=== PATIENT | male | born 1950 | race Caucasian/White ===

== ENCOUNTER → 2019-10-16 14:43 | Outpatient (BNVA) | payer MEDICARE, OTHER, SELFPAY | PROVIDERS: Family Provider Internal Medicine; PCP Internal Medicine; Visit Provider Anesthesiology | DX: M54.5 Low back pain (principal); M79.604 Pain in right leg; M79.605 Pain in left leg; Z79.891 Long term (current) use of opiate analgesic | CPT/HCPCS: 99214 ==

== ENCOUNTER → 2019-10-28 11:08 | Outpatient (BNVA) | payer OTHER, SELFPAY | PROVIDERS: Family Provider Internal Medicine; PCP Internal Medicine; Referring Provider Licensed Practical Nurse; Visit Provider Psychiatry & Neurology Neurology | DX: M79.604 Pain in right leg (principal); M79.605 Pain in left leg; M54.5 Low back pain; Z87.891 Personal history of nicotine dependence | CPT/HCPCS: 95886; 95909 ==

== ENCOUNTER 2019-11-25 06:00 | Outpatient (RCR) | payer MEDICARE, OTHER, SELFPAY | END 2019-12-10 23:59 | disposition home or self-care (01) | LOC: MPT 06:00 | PROVIDERS: Family Provider Internal Medicine; PCP Internal Medicine; Referring Provider Licensed Practical Nurse; Visit Provider Licensed Practical Nurse | DX: M51.16 Intervertebral disc disorders with radiculopathy, lumbar region (principal) | CPT/HCPCS: 97110; 97161 ==

== ENCOUNTER → 2019-12-12 14:09 | Outpatient (BNVA) | payer OTHER, SELFPAY | PROVIDERS: Family Provider Internal Medicine; PCP Internal Medicine; Visit Provider Nurse Practitioner | DX: Z76.89 Persons encountering health services in other specified circumstances (principal) ==

== ENCOUNTER 2020-03-02 10:23 | Outpatient (CLI) | payer MEDICARE, OTHER, SELFPAY ==
--- NOTE | 2020-03-02 10:36 | MR_ITS ---
WS: [id number] MRI LUMBAR SPINE WITH CONTRAST TECHNIQUE: Sagittal T1, T2 and STIR imaging. Axial T1 and T2 imaging. Post gadolinium imaging was obt ained. CLINICAL INFORMATION: Surveillance MRI COMPARISON: MRI 08/30/2019 and 05/28/2019 MRI May 01, 2019 FINDINGS: Mild lumbar curve. No acute compression. No high-grade central canal stenosis. Again seen is the smal l enhancing nodule at the tip of the conus measuring 4 mm maximum dimension unchanged from previous. This most likely represents a small schwannoma. L1-L2: Normal. L2-L3: No significant disc bulging. Spinal canal and foramen are patent. Mild facet arthropathy. L3-L4: Tiny left foraminal protrusion with mild left and no significant right foraminal narrowing. Sp inal canal is patent. Mild facet arthropathy. L4-L5: Mild annular bulging. Mild left and no significant right foraminal narrowing. Spinal canal is patent. Mild facet arthropathy. L5-S1: Mild annular bulging. Mild facet arthropathy. Spinal canal and foramen are patent. 2.3 cm left renal cyst. MR/MR lumbar spine wo/w con [id number] IMPRESSION: 1. Stable small enhancing nodule tip of the conus likely due to schwannoma. Th is is unchanged measuring 4 mm. 2. Mild lumbar curve. No acute compression. No high-grade central canal stenos is. 3. Small left foraminal protrusion L3-4 with mild left foraminal narrowing. Sl ight contact of the exiting left L3 nerve root. 4. Mild annular bulging L4-5 with mild left L4-5 foraminal narrowing. 5. Moderate facet arthropathy worse L4-5.
[2020-03-02 12:31] LABS: Blood Urea Nitrogen 14 mg/dL (8-23); Glomerular Filtration Rate 74.1 mL/min (90-130)
== END 2020-03-02 10:24 | disposition home or self-care (01) ==
LOC: RADWPI 10:31
PROVIDERS: Visit Provider Licensed Practical Nurse
DX: D33.4 Benign neoplasm of spinal cord (principal); M51.26 Other intervertebral disc displacement, lumbar region; M47.816 Spondylosis without myelopathy or radiculopathy, lumbar region
CPT/HCPCS: 72158; 82565; 84520; A9579

== ENCOUNTER → 2020-03-18 09:52 | Outpatient (BNVA) | payer MEDICARE, OTHER, SELFPAY | PROVIDERS: Family Provider Internal Medicine; PCP Internal Medicine; Visit Provider Nurse Practitioner | DX: M54.5 Low back pain (principal); Z79.891 Long term (current) use of opiate analgesic | CPT/HCPCS: 99213 ==

== ENCOUNTER → 2020-05-21 09:45 | Outpatient (BNVA) | payer MEDICARE, OTHER, SELFPAY | PROVIDERS: Family Provider Internal Medicine; PCP Family Medicine; Visit Provider Nurse Practitioner | DX: M51.16 Intervertebral disc disorders with radiculopathy, lumbar region (principal); Z79.891 Long term (current) use of opiate analgesic | CPT/HCPCS: 99213 ==

== ENCOUNTER → 2020-07-17 08:42 | Outpatient (BNVA) | payer OTHER, SELFPAY | PROVIDERS: Family Provider Internal Medicine; PCP Family Medicine; Visit Provider Anesthesiology | DX: M51.16 Intervertebral disc disorders with radiculopathy, lumbar region (principal); D33.4 Benign neoplasm of spinal cord; Z79.891 Long term (current) use of opiate analgesic | CPT/HCPCS: 99212; 99214 ==

== ENCOUNTER 2020-08-24 09:50 | Outpatient (CLI) | payer OTHER, SELFPAY | END 2020-08-24 09:51 | disposition home or self-care (01) | LOC: WOUND 09:52 | PROVIDERS: Family Provider Internal Medicine; PCP Family Medicine; Visit Provider Nurse Practitioner Family | DX: L03.119 Cellulitis of unspecified part of limb (principal); R60.9 Edema, unspecified | CPT/HCPCS: 99212; A6545 ==

== ENCOUNTER 2020-08-27 20:00 | Outpatient (CLI) | payer OTHER, SELFPAY | END 2020-08-27 20:01 | disposition home or self-care (01) | LOC: SLEEP 08-28 09:32 | PROVIDERS: PCP Family Medicine; Visit Provider Family Medicine | DX: G47.33 Obstructive sleep apnea (adult) (pediatric) (principal) | CPT/HCPCS: 95811 ==

== ENCOUNTER 2020-08-28 07:32 | Outpatient (CLI) | payer OTHER, SELFPAY ==
--- NOTE | 2020-08-28 07:41 | USCV_ITS ---
Paul Boone Age: 69 Gender: M : 1950 Exam Date: 08/28/2020 08:15 Ordering Phys: Carolyn Klein Technologist: uRpal Ward [place] [facility] [place]: HISTORY: Non Healing Wound Lt post lower leg PROCEDURES: The venous duplex Doppler examination of both lower extremities was performed in the standard fashion. The following venous structures were evaluated: common femoral vein, profunda vein, proximal portion of the greater saphenous vein, superficial femoral vein, and the popliteal vein FINDINGS: No DVT seen in any vessel examined No superficial thrombus noted in any vessel examined No reflux noted in any vessel examined The veins were found to be easily compressible with spontaneous blood flow. Non pulsatile flow pattern. CONCLUSIONS No evidence of DVT in the above-mentioned identifiable veins. No notable reflux was seen at this time. Dr Dai Abebe MD [facility] (Electronically Signed) Final Date: 30 August 2020 14:37 S
== END 2020-08-28 07:33 | disposition home or self-care (01) ==
LOC: US 07:32
PROVIDERS: PCP Family Medicine; Visit Provider Nurse Practitioner Family
DX: M79.605 Pain in left leg (principal); L53.9 Erythematous condition, unspecified
CPT/HCPCS: 93970

== ENCOUNTER 2020-09-01 07:52 | Outpatient (CLI) | payer OTHER, SELFPAY ==
--- NOTE | 2020-09-01 08:00 | USCV_ITS ---
Boone Miller Age: 69 Gender: M : 1950 Exam Date: 09/01/2020 07:46 Ordering Phys: Carolyn Klein Technologist: Exam Location: [facility] [place] Indication: non healing ulcer RIGHT LEFT Brachial 184.00 mmHg Brachial 182.00 mmHg Pressure (mmHg) Waveform Pressure (mmHg) Waveform 172.00 Above Knee 179.00 198.00 Below Knee 202.00 209.00 PRODUCT DEVELOPMENT INTERN 191.00 203.00 DPA 180.00 1.14 Ankle/Brachial Index 1.04 144.00 Pre-Exercise Toe Pressure 149.00 0.78 Pre-Exercise Toe/Brachial Index 0.81 FINDINGS Normal resting ABIs bilaterally Normal resting TBIs bilaterally CONCLUSIONS No significant arterial obstruction, based on the above findings Elevated segmental pressures bilaterally Dr Dai Abebe MD [facility] (Electronically Signed) Final Date: 01 September 2020 20:26 S
== END 2020-09-01 07:53 | disposition home or self-care (01) ==
LOC: US 07:57
PROVIDERS: PCP Family Medicine; Visit Provider Nurse Practitioner Family
DX: M79.604 Pain in right leg (principal); M79.605 Pain in left leg; L53.9 Erythematous condition, unspecified; L97.929 Non-pressure chronic ulcer of unspecified part of left lower leg with unspecified severity; L97.919 Non-pressure chronic ulcer of unspecified part of right lower leg with unspecified severity
CPT/HCPCS: 93923

== ENCOUNTER → 2020-09-16 08:01 | Outpatient (BNVA) | payer OTHER, SELFPAY | PROVIDERS: PCP Family Medicine; Visit Provider Anesthesiology | DX: M51.16 Intervertebral disc disorders with radiculopathy, lumbar region (principal); Z79.891 Long term (current) use of opiate analgesic | CPT/HCPCS: 99214 ==

== ENCOUNTER → 2020-09-17 09:12 | Outpatient (BNVA) | payer OTHER, SELFPAY | PROVIDERS: PCP Family Medicine; Visit Provider Anesthesiology | DX: G89.29 Other chronic pain (principal); M51.16 Intervertebral disc disorders with radiculopathy, lumbar region; E11.9 Type 2 diabetes mellitus without complications; Z79.891 Long term (current) use of opiate analgesic | CPT/HCPCS: 62323; J1040; J3490 ==

== ENCOUNTER → 2020-11-17 07:54 | Outpatient (BNVA) | payer OTHER, SELFPAY | PROVIDERS: PCP Family Medicine; Visit Provider Anesthesiology | DX: M51.16 Intervertebral disc disorders with radiculopathy, lumbar region (principal); D33.4 Benign neoplasm of spinal cord; Z79.891 Long term (current) use of opiate analgesic | CPT/HCPCS: 99214 ==

== ENCOUNTER → 2021-01-19 12:52 | Outpatient (BNVA) | payer OTHER, SELFPAY | PROVIDERS: PCP Family Medicine; Visit Provider Anesthesiology | DX: G89.29 Other chronic pain (principal); M51.16 Intervertebral disc disorders with radiculopathy, lumbar region; Z79.891 Long term (current) use of opiate analgesic | CPT/HCPCS: 99214 ==

== ENCOUNTER → 2021-03-16 10:16 | Outpatient (BNVA) | payer OTHER, SELFPAY | PROVIDERS: PCP Family Medicine; Visit Provider Anesthesiology | DX: G89.29 Other chronic pain (principal); M51.16 Intervertebral disc disorders with radiculopathy, lumbar region; Z79.891 Long term (current) use of opiate analgesic; Z87.891 Personal history of nicotine dependence | CPT/HCPCS: 99213; 99214 ==

== ENCOUNTER → 2021-05-18 10:07 | Outpatient (BNVA) | payer OTHER, SELFPAY | PROVIDERS: PCP Family Medicine; Visit Provider Anesthesiology | DX: M51.16 Intervertebral disc disorders with radiculopathy, lumbar region (principal); D33.4 Benign neoplasm of spinal cord; Z79.891 Long term (current) use of opiate analgesic; Z87.891 Personal history of nicotine dependence | CPT/HCPCS: 99213 ==

== ENCOUNTER → 2021-07-20 12:42 | Outpatient (BNVA) | payer OTHER, SELFPAY | PROVIDERS: PCP Family Medicine; Visit Provider Anesthesiology | DX: M51.16 Intervertebral disc disorders with radiculopathy, lumbar region (principal); Z79.891 Long term (current) use of opiate analgesic | CPT/HCPCS: 99213 ==

== ENCOUNTER → 2021-09-17 11:28 | Outpatient (BNVA) | payer OTHER, SELFPAY | PROVIDERS: PCP Family Medicine; Visit Provider Anesthesiology | DX: M51.16 Intervertebral disc disorders with radiculopathy, lumbar region (principal); Z79.891 Long term (current) use of opiate analgesic; Z87.891 Personal history of nicotine dependence | CPT/HCPCS: 99213 ==

== ENCOUNTER → 2021-11-15 14:15 | Outpatient (BNVA) | payer OTHER, SELFPAY | PROVIDERS: PCP Family Medicine; Visit Provider Internal Medicine | DX: I25.10 Atherosclerotic heart disease of native coronary artery without angina pectoris (principal); I10 Essential (primary) hypertension; E11.9 Type 2 diabetes mellitus without complications; E78.5 Hyperlipidemia, unspecified; R07.9 Chest pain, unspecified; R06.02 Shortness of breath; Z87.891 Personal history of nicotine dependence | CPT/HCPCS: 99214 ==

== ENCOUNTER 2022-01-24 11:03 | Outpatient (CLI) | payer OTHER, SELFPAY ==
--- NOTE | 2022-01-24 11:15 | USCV_ITS ---
Boone Miller Age: 71 Gender: M : 1950 Exam Date: 01/24/2022 11:20 Ordering Phys: Alan Timmons M.D ([email or web address]) Technologist: Exam Location: [facility] [place] Indication: murmur BP: 168 / 65 HR: 72 Rhythm: Other Technical Quality: Adequate MEASUREMENTS (Male / Female) Normal Values 2D ECHO LV Diastolic Diameter PLAX 5.2 cm 4.2 - 5.9 / 3.9 - 5.3 cm LV Systolic Diameter PLAX 2.8 cm IVS Diastolic Thickness 1.3 cm 0.6 - 1.0 / 0.6 - 0.9 cm IVS Systolic Thickness 1.6 cm LVPW Diastolic Thickness 1.3 cm 0.6 - 1.0 / 0.6 - 0.9 cm LVPW Systolic Thickness 1.8 cm LVOT Diameter 2.0 cm LV Ejection Fraction 2D Teich 77.4 % LV Ejection Fraction MOD 2C 69.9 % LV Ejection Fraction 2C AL 69.6 % LA Diameter 3.9 cm Aorta at Sinotubular Diameter 2.8 cm IVC Diameter 2.0 cm M-MODE RV Diastolic Diameter MM 1.6 cm Aortic Annulus Diameter 3.7 cm LA Ao Ratio MM 1.2 MV E Point Septal Separation 0.6 cm DOPPLER AV Peak Velocity 145.0 cm/s LVOT Peak Velocity 95.0 cm/s AV Area Cont Eq vti 1.9 cm squared AV Area Cont Eq pk 2.1 cm squared MV Area PHT 5.0 cm squared Mitral E to A Ratio 1.1 MV E' Velocity 49.5 cm/s Mitral E to MV E' Ratio 10.3 Mitral E to LV E' Lateral Ratio 10.0 Mitral E to LV E' Septal Ratio 10.6 TR Peak Velocity 148.7 cm/s TR Peak Gradient 8.8 mmHg TV Peak E Velocity 87.0 cm/s Right Atrial Pressure 3.0 mmHg Pulmonary Artery Systolic Pressu 11.8 mmHg PV Peak Velocity 110.0 cm/s FINDINGS Left Ventricle Normal left ventricular size. LV systolic function is normal with EF of 55-60%. No regional wall motion abnormalities. Diastolic function is normal Right Ventricle The right ventricle is normal in size and function. Right Atrium The right atrium is normal in size. Left Atrium The left atrium is dilated. Mitral Valve Structurally normal mitral valve without significant stenosis or prolapse. There is trace mitral regurgitation. Aortic Valve Structurally normal aortic valve without significant sclerosis or stenosis. There is no aortic regurgitation. Tricuspid Valve Structurally normal tricuspid valve without significant stenosis. Trace tricuspid regurgitation. Pulmonary artery systolic pressure is normal. Pulmonic Valve Structurally normal pulmonic valve without significant stenosis. There is no pulmonic regurgitation. Pericardium Normal pericardium without effusion. Aorta Normal ascending aorta dimension. IVC CONCLUSIONS LV systolic function is normal with EF of 55-60% Diastolic function is normal Left atrium is dilated Trace mitral regurgitation Trace tricuspid regurgitation No comparison studies are available Alan Timmons MD (Electronically Signed) Final Date: 29 Jan 2022 12:45 S
== END 2022-01-24 11:04 | disposition home or self-care (01) ==
LOC: RAD 11:06
PROVIDERS: PCP Family Medicine; Visit Provider Internal Medicine
DX: R07.9 Chest pain, unspecified (principal); R06.02 Shortness of breath; I51.7 Cardiomegaly
CPT/HCPCS: 93306

== ENCOUNTER → 2022-05-30 13:27 | Outpatient (BNVA) | payer OTHER, SELFPAY | PROVIDERS: PCP Family Medicine; Visit Provider Internal Medicine | DX: I10 Essential (primary) hypertension (principal); E11.9 Type 2 diabetes mellitus without complications; Z79.84 Long term (current) use of oral hypoglycemic drugs; E78.5 Hyperlipidemia, unspecified; I25.10 Atherosclerotic heart disease of native coronary artery without angina pectoris; R07.9 Chest pain, unspecified; Z87.891 Personal history of nicotine dependence | CPT/HCPCS: 99214 ==

== ENCOUNTER 2022-08-16 12:12 | Outpatient (CLI) | payer OTHER, SELFPAY ==
--- NOTE | 2022-08-16 12:25 | USCV_ITS ---
Boone Miller Age: 71 Gender: M : 1950 Exam Date: 08/16/2022 12:32 Ordering Phys: Lucero Banerjee MD Technologist: CT Exam Location: [facility] [place]_ Indication: screening aaa HISTORY: Diameter (cm) AP x Transverse x Length Velocity (cm/s) Waveform Prox Aorta: 1.95 x 1.99 x 63.40 Mid Aorta: 2.10 x 2.14 x 92.40 Distal Aorta: 2.07 x 2.07 x Right Iliac Prox: 1.57 x 1.34 x 237.60 Left Iliac Prox: 1.53 x 1.42 x 107.40 Stent Prox Landing x x Aneurysmal Sac Max x x Lt Lat Sac Dim Rt Lat Sac Dim Stent Dist Landing x x Right Iliac Stent x x Left Iliac Stent x x Right Renal Art Left Renal Art FINDINGS: Large pt, doppler of ao and iliacs were very difficult to obtain and may not be accurate. There is no evidence of aaa. CONCLUSIONS 1. Abdominal aorta was found to have normal dimensions, suggesting no abdominal aortic aneurysm. 2. The proximal common iliac arteries also appear to have normal dimensions. 3. Elevated velocity in the left common iliac artery may suggest stenosis of greater than 50%. Because of the patient's obesity, the study quality is compromised. Consider CTA to better evaluate the arteries, specifically the left iliac artery Dr Dai Abebe MD [facility] (Electronically Signed) Final Date: 19 August 2022 17:35 S
== END 2022-08-16 12:13 | disposition home or self-care (01) ==
LOC: RAD 12:14
PROVIDERS: PCP Family Medicine; Visit Provider Family Medicine
DX: Z13.6 Encounter for screening for cardiovascular disorders (principal)
CPT/HCPCS: 76706

== ENCOUNTER → 2022-10-25 14:24 | Outpatient (BNVA) | payer OTHER, SELFPAY | PROVIDERS: PCP Family Medicine; Visit Provider Orthopaedic Surgery | DX: M47.814 Spondylosis without myelopathy or radiculopathy, thoracic region (principal); M47.816 Spondylosis without myelopathy or radiculopathy, lumbar region | CPT/HCPCS: 72070; 72120; 99204 ==

== ENCOUNTER 2022-10-26 07:26 | Outpatient (CLI) | payer OTHER, SELFPAY ==
--- NOTE | 2022-10-26 07:41 | ECG_ITS ---
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 Interpretive Statements NAME OF STUDY: LEXISCAN SESTAMIBI STRESS TEST INDICATION: [Chest Pain, ] Procedure: At the baseline, the blood pressure was 159/60 mmHg with a heart rate of 65 bpm. The electrocardiogram showed normal sinus rhythm, normal axis with normal ST and T's. The Lexiscan was infused over a period of 20 seconds. A total of 0.4 mg of Lexiscan was infused. The stress phase was continued for a total of 5 minutes. Heart rate was at the end of stress phase was 85 bpm and a blood pressure of 150/44 mmHg. The EKG at the peak infusion revealed normal sinus rhythm with no significant ST-T wave changes. Sestamibi was injected 20 seconds after the Lexiscan infusion. Blood pressure at the end of recovery phase was 162/44 mmHg with a heart rate of 77 bpm. Conclusion: 1. Normal EKG response to Lexiscan infusion 2. No Lexiscan induced chest pain or cardiac arrhythmia. 3. Normal blood pressure and heart rate response. 4. Sestamibi/sestamibi perfusion scan pending; see separate report. Electronically Signed On 11-05-2022 23:07:01 PHARMACIST AIDE by Alan Timmons M.D. [id number]
--- NOTE | 2022-10-26 07:42 | NMCV_ITS ---
NM samuel perf SPECT r/s* [id number] Boone Miller Age: 71 Gender: M : 1950 Exam Date: 10/26/2022 08:39 Ordering Phys: Alan Timmons M.D ([email or web address]) Technologist: ANKITA Holley Exam Location: [facility] Indications: CHEST PAIN STRESS TEST [facility] IMAGE PROTOCOL Rest/Stress 1 Lexiscan Day Radiopharmaceutical Dose (mCi) Administration Site Administered by Rest: Tc-99m 10.7 IV ANKITA Gurrola Sestamibi Stress:Tc-99m 32.6 IV ANKITA Gurrola Sestamibi Rest: 26-Oct-2022 60 Discovery 630 Stress: 26-Oct-2022 30 Discovery 630 0.4mg Lexiscan. Supine position only as patient was unable to lay prone. SPECT RESULTS Technical Quality: Excellent Raw Data Analysis: Normal Image Corrections: No attenuation or motion correction applied Summed Stress Score: 3 Summed Rest Score: 2 Summed Difference Score: 2 PERFUSION FINDINGS There is a small in size, reversible perfusion defect noted in the mid anterior wall and inferolateral abraham. Prone imaging not performed, attenuation artifact can not be ruled out FUNCTIONAL RESULTS (calculated via Gated SPECT) Stress Image LV EF (%): 72 Stress EDV (mL):114 TID: 1.06 Stress ESV (mL):32 FUNCTIONAL FINDINGS: There is normal left ventricular systolic function. IMPRESSIONS 1. Small areas of reversible perfusion defect noted in the LAD and Left circumflex artery territories. This is consistent with small areas of ischmia in these territories. Attenuation artifact can not be ruled out. Clinical correlation is required. 2. LV systolic function is normal Alan Timmons MD (Electronically Signed) Final Date: 27 October 2022 08:49 S
[2022-10-26] MEDS: regadenoson 0.4 Mg/5 ml Syringe IVP (09:09)
[2022-10-26 09:28] VITALS: BP 141/49; PULSE 79
== END 2022-10-26 07:27 | disposition home or self-care (01) ==
LOC: RAD 07:32 → CDL 07:40
PROVIDERS: PCP Family Medicine; Visit Provider Internal Medicine
DX: R07.9 Chest pain, unspecified (principal); I25.9 Chronic ischemic heart disease, unspecified
CPT/HCPCS: 36415; 78452; 93017; 96374; A9500; J2785

== ENCOUNTER 2022-11-11 11:23 | Outpatient (CLI) | payer OTHER, SELFPAY | END 2022-11-11 11:24 | disposition home or self-care (01) | LOC: RT 11-16 11:25 | PROVIDERS: PCP Family Medicine; Visit Provider Orthopaedic Surgery | DX: Z13.6 Encounter for screening for cardiovascular disorders (principal); I48.91 Unspecified atrial fibrillation | CPT/HCPCS: 93005 ==

== ENCOUNTER 2022-11-16 09:39 | Outpatient (CLI) | payer OTHER, SELFPAY ==
--- NOTE | 2022-11-16 10:02 | CT_ITS ---
WS: [id number] CTA ABDOMINAL AORTA WITH RUNOFF TECHNIQUE: Contrast enhanced CTA of the abdominal aorta with bilateral lower extremity runoff. Multip lanar reformatted images were obtained. MIP reformats were also reviewed. CLINICAL INFORMATION: ?INCIDENTAL LEFT COMMON STENOSIS NOTED ON AAA SCREENING COMPARISON: Ultrasound August 16, 2022 DLP: 790.[address] scans at [facility] use at least one of these dose optimization techniques: automated e xposure control; mA and/or kV adjustment per patient size (includes targeted exams where dose is matc hed to clinical indication); or iterative reconstruction. FINDINGS: Normal caliber abdominal aorta. No evidence of abdominal aortic aneurysm. Moderate calcifie d atheromatous disease abdominal aorta. Celiac and SMA are patent. Renal arteries are patent. Patent accessory RIGHT renal artery. BENJY is patent. Lung bases are well aerated. Hepatomegaly with diffuse f atty infiltration liver. Small esophageal hiatal hernia. Normal spleen. Fatty atrophy of the pancreas . Gallbladder appears normal. Normal portal vein and splenic vein. Adrenal glands are normal. Normal renal parenchymal enhancement. No hydronephrosis. LEFT renal cyst measuring 2.1 cm. Sigmoid diverticulosis. No evidence of acute diverticulitis. RIGHT: Densely calcified RIGHT common iliac artery with approximately 50% stenosis at the origin. Seg mental moderate stenosis RIGHT common iliac artery which remains patent. Densely calcified internal i liac artery with poor flow. External iliac artery is patent. Common femoral artery is patent. Superfi cial femoral and deep femoral arteries are patent. Mild to moderate segmental stenosis in the superfi cial femoral artery with somewhat poor opacification. This appears patent to the adductor hiatus. Pop liteal artery is also somewhat poorly opacified but appears patent. Densely calcified and atretic jewel f arteries. LEFT: LEFT common iliac artery is patent at the origin. Moderate calcified atheromatous plaque LEFT c ommon iliac artery with mild to moderate segmental stenosis which remains patent. No high-grade steno sis. Densely calcified internal iliac artery. External iliac artery is patent. Common femoral and sup erficial femoral arteries are patent. Deep femoral artery is patent. Superficial femoral artery demon strates mild to moderate segmental stenosis and is patent to the adductor hiatus. Popliteal artery is patent to the trifurcation. Densely calcified and atretic calf arteries. This is similar in appearan ce to the RIGHT side. CT/CT angio abd aorta runof [id number] IMPRESSION: 1. RIGHT: Densely calcified RIGHT common iliac artery with approximately 50% s tenosis at the origin. Segmental moderate stenosis RIGHT common iliac artery wh ich remains patent. External iliac artery is patent. Common femoral artery is p atent. Superficial femoral and deep femoral arteries are patent. Mild to modera te segmental stenosis in the superficial femoral artery with somewhat poor opac ification. This appears patent to the adductor hiatus. Popliteal artery is also somewhat poorly opacified but appears patent. Densely calcified and atretic ca lf arteries. 2. LEFT: LEFT common iliac artery is patent at the origin. Moderate calcified atheromatous plaque LEFT common iliac artery with mild to moderate segmental st enosis which remains patent. No high-grade stenosis. External iliac artery is p atent. Common femoral and superficial femoral arteries are patent. Superficial femoral artery demonstrates mild to moderate segmental stenosis and is patent to the adductor hiatus. Popliteal artery is patent to the trifurcation. Densely calcified and atretic calf arteries. This is similar in appearance to the RIGH T side. 3. Normal caliber abdominal aorta with moderate atheromatous disease. No aneur ysm. 4. Celiac and SMA are patent. 5. Renal arteries are patent. 6. Otherwise mild vascular findings described above.
[2022-11-16] MEDS: iohexol 350 mg/mL 500 mL Btl (per mL) IV (10:29)
== END 2022-11-16 09:40 | disposition home or self-care (01) ==
LOC: RAD 09:42
PROVIDERS: PCP Family Medicine; Visit Provider Family Medicine
DX: Z01.89 Encounter for other specified special examinations (principal); K57.30 Diverticulosis of large intestine without perforation or abscess without bleeding; I70.8 Atherosclerosis of other arteries
CPT/HCPCS: 75635; Q9967

== ENCOUNTER → 2022-11-17 15:40 | Outpatient (BNVA) | payer OTHER, SELFPAY | PROVIDERS: PCP Family Medicine; Visit Provider Nurse Practitioner Family | DX: I48.91 Unspecified atrial fibrillation (principal); I25.10 Atherosclerotic heart disease of native coronary artery without angina pectoris; Z87.891 Personal history of nicotine dependence; Z79.01 Long term (current) use of anticoagulants | CPT/HCPCS: 36415; 80048; 83880; 93005; 99214 ==

== ENCOUNTER 2022-11-18 | Day surgery (SDC) | payer OTHER, SELFPAY ==
--- NOTE | 2022-11-11 09:02 | ECG_ITS ---
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 Measurements Intervals [place] Rate: 86 P: 0 ND: 0 QRS: 76 QRSD: 93 T: 60 QT: 379 QTc: 455 Interpretive Statements ATRIAL FIBRILLATION with occasional sinus beats LOW QRS VOLTAGE IN PRECORDIAL LEADS [QRS DEFLECTION < 1.0 mV IN CHEST LEADS] POSSIBLE ANTERIOR MYOCARDIAL INFARCTION , PROBABLY OLD [30 ms Q WAVE IN V3/V4, OR R < 0.2 mV IN V4] ABNORMAL RHYTHM ECG No previous ECG available for comparison Electronically Signed On 11-11-2022 21:54:27 DOOR ASSEMBLER by Dai Abebe M.D. [id number]
[2022-11-11 09:17] LABS: Basophils # 0.1 10^3/uL (0.0-0.1); Basophils % 0.6 %; Eosinophils # 0.2 10^3/uL (0.0-0.8); Eosinophils % 2.3 %; Hematocrit 35.6 % (42.0-52.0); Hemoglobin 11.3 g/dL (11.7-16.6); Lymphocytes # 1.8 10^3/uL (0.8-4.8); Lymphocytes % 20.8 %; Mean Corpuscular HGB Conc 31.7 g/dL (30.0-36.0); Mean Corpuscular Hemoglobin 28.3 pg (28.0-34.0); Mean Platelet Volume 9.5 fL (7.4-10.4); Monocytes # 0.8 10^3/uL (0.2-0.9); Monocytes % 9.6 %; Neutrophils # 5.68 10^3/uL (1.8-7.7); Neutrophils % 66.5 %; Nucleated Red Blood Cells % 0 %; Platelet Count 273 10^3/cmm (130-400); Red Cell Distribution Width 15.5 % (12.1-15.1); White Blood Count 8.6 10^3/uL (4.0-10.0)
[2022-11-11 09:21] VITALS: BMI 36.9
[2022-11-11 09:33] LABS: Anion Gap 16.1 (5-19); Blood Urea Nitrogen 16 mg/dL (8-23); Calcium 9.6 mg/dL (8.5-10.5); Carbon Dioxide 26 mmol/L (22-29); Chloride 101 mmol/L (98-107); Glucose 161 mg/dL (65-115); Osmolality Calculated 293 mOsm/kg (285-295); Potassium 4.1 mmol/L (3.5-5.1); Sodium 139 mmol/L (136-145)
--- NOTE | 2022-11-11 13:43 | P.ANESASSM_ITS ---
Pre-Anesthetic Assessment Height/Weight: Height 1.7 m Weight 107.048 kg Operation Date: 11/18/22 07:00 Proposed Procedures p Spinal Cord Stimulator Placement and Generator/71569, 13757 M54.50(Not Applicable) - Liang Mario, DO Familial anesthetic complications: none Was Beta Isabel taken within 24 hours: N/A Was Clonidine taken within 24 hours: N/A Social No alcohol and No tobacco Exam alert, oriented x 3, clear to auscultation bilaterally and regular rate & rhythm Airway Submandibular: within normal limits Cervical ROM: within normal limits Mallampati: Class II Dentition: false CV/HEM Atrial Fibrillation, Coronary Artery Disease and Myocardial Infarction CONCLUSIONS ?LV systolic function is normal with EF of 55-60% ?Diastolic function is normal ?Left atrium is dilated ?Trace mitral regurgitation ?Trace tricuspid regurgitation ?No comparison studies are available ?Alan Timmons MD ?(Electronically Signed) ?Final Date:? ? ? 29 Jan 2022 12:45 Conclusion: 1. ? Normal EKG response to Lexiscan infusion 2.? No Lexiscan induced chest pain or cardiac arrhythmia. 3.? Normal blood pressure and heart rate response. 4.? Sestamibi/sestamibi perfusion scan pending; see separate report. Electronically Signed On 11-05-2022 23:07:01 SALES TEAM RECRUITER by Alan Timmons M.D. [id number] GI Gastroesophageal Reflux Disease Metabolic Diabetes Mellitus, Hyperlipidemia and Morbid Obesity [facility] [place] Lower Back Pain and Osteoarthritis/DJD Neuropsych chronic pain/opioid Anesthetic Plan ASA status: 3 Anesthesia: General Medications/Allergies Home Medications Medication Instructions Recorded Confirmed Last Taken Type alogliptin 25 mg tablet 25 mg PO DAILY 10/16/19 11/11/22 11/11/22 History amlodipine 10 mg tablet 10 mg PO DAILY 10/16/19 11/11/22 11/11/22 History atorvastatin 80 mg tablet 80 mg PO DAILY 10/16/19 11/11/22 11/11/22 History clopidogrel 75 mg tablet (Plavix) 75 mg PO DAILY 10/16/19 11/11/22 11/11/22 History diclofenac sodium 1 % gel topical 4 gm topical BID PRN Pain 10/16/19 11/11/22 11/11/22 History kit finasteride 5 mg tablet 5 mg PO DAILY 10/16/19 11/11/22 11/11/22 History metformin 1,000 mg tablet 1,000 mg PO BID 10/16/19 11/11/22 11/11/22 History pregabalin 150 mg capsule 150 mg PO BID 10/16/19 11/11/22 11/11/22 History tamsulosin 0.4 mg capsule 0.4 mg PO DAILY 10/16/19 11/11/22 11/11/22 History pantoprazole 20 mg tablet,delayed 20 mg PO DAILY 03/18/20 11/11/22 11/11/22 History release cholecalciferol (vitamin D3) 50 50 mcg PO DAILY 07/20/21 11/11/22 11/11/22 History mcg (2,000 unit) tablet (Vitamin D3) hydrocodone 5 mg-acetaminophen 325 1 tab PO QID PRN pain 30 days #120 09/17/21 11/11/22 11/11/22 Rx mg tablet tabs furosemide 40 mg tablet 40 mg PO BID 11/15/21 11/11/22 11/11/22 History potassium chloride 20 mEq 20 meq PO DAILY 11/15/21 11/11/22 11/11/22 History tablet,extended release sacubitril 97 mg-valsartan 103 mg 0.5 tab PO BID 11/15/21 11/11/22 11/11/22 History tablet hydralazine 100 mg tablet 100 mg PO TID #270 tabs 05/30/22 11/11/22 11/11/22 Rx aspirin 81 mg tablet,delayed 81 mg PO DAILY 11/11/22 11/11/22 11/10/22 History release Allergies Allergy/AdvReac Type Severity Reaction Status Date / Time isosorbide AdvReac CONFUSION/N Verified 10/25/22 14:20 [facility] Anesthesia Medical History Atherosclerotic heart disease Back pain, lumbosacral Diabetes mellitus Encounter for long-term use of opiate analgesic History of left heart catheterization Hyperlipidemia 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 Schwannoma of spinal cord Thoracic back pain Surgical History H/O rhinoplasty History of shoulder surgery Family History Mother Chronic kidney disease (CKD) Diabetes Father Dementia Social History Smoking and tobacco status: former smoker Second hand smoke exposure: No Alcohol intake: never Household members: spouse Marital status: Current occupational status: retired and disabled Data Anesthesia 11/11/22 09:10 11/11/22 09:10 Short CBC 11/11/22 Range/Units 09:10 WBC 8.6 (4.0-10.0) 10^3/uL Hgb 11.3 L (11.7-16.6) g/dL Hct 35.6 L (42.0-52.0) % MCV 89.0 (80-94) fl Plt Count 273 (130-400) 10^3/cmm Neut % (Auto) 66.5 % Neut # (Auto) 5.68 (1.8-7.7) 10^3/uL BMP 11/11/22 09:10 Sodium 139 Potassium 4.1 Chloride 101 Carbon Dioxide 26 BUN 16 Creatinine 0.8 Glucose 161 H Calcium 9.6 Cardiac Studies: Echocardiogram 01/24/22 Sestamibi Stress Test (Cardiology) 10/26
== END 2022-11-18 23:00 | disposition home or self-care (01) ==
LOC: OR 01-25 13:51
PROVIDERS: Anesthesiology; PCP Family Medicine; Visit Provider Orthopaedic Surgery
DX: I48.91 Unspecified atrial fibrillation (principal); R94.31 Abnormal electrocardiogram [ECG] [EKG]; Z01.818 Encounter for other preprocedural examination; M54.50 Low back pain, unspecified; I25.10 Atherosclerotic heart disease of native coronary artery without angina pectoris; I25.2 Old myocardial infarction; K21.9 Gastro-esophageal reflux disease without esophagitis; E11.9 Type 2 diabetes mellitus without complications; E78.5 Hyperlipidemia, unspecified; E66.01 Morbid (severe) obesity due to excess calories; Z68.37 Body mass index [BMI] 37.0-37.9, adult; G89.29 Other chronic pain; Z79.891 Long term (current) use of opiate analgesic; Z79.02 Long term (current) use of antithrombotics/antiplatelets; Z79.84 Long term (current) use of oral hypoglycemic drugs; Z79.82 Long term (current) use of aspirin; Z87.891 Personal history of nicotine dependence
CPT/HCPCS: 80048; 85025

== ENCOUNTER → 2022-12-02 11:16 | Outpatient (BNVA) | payer OTHER, SELFPAY | PROVIDERS: PCP Family Medicine; Visit Provider Nurse Practitioner Family | DX: I48.91 Unspecified atrial fibrillation (principal); I10 Essential (primary) hypertension; Z87.891 Personal history of nicotine dependence | CPT/HCPCS: 36415; 80048; 83880; 99214 ==

== ENCOUNTER → 2023-01-23 15:23 | Outpatient (BNVA) | payer OTHER, SELFPAY | PROVIDERS: PCP Family Medicine; Visit Provider Internal Medicine | DX: I25.10 Atherosclerotic heart disease of native coronary artery without angina pectoris (principal); I10 Essential (primary) hypertension; E11.9 Type 2 diabetes mellitus without complications; E78.5 Hyperlipidemia, unspecified; R07.9 Chest pain, unspecified; Z87.891 Personal history of nicotine dependence | CPT/HCPCS: 99214 ==

== ENCOUNTER → 2023-04-03 10:24 | Outpatient (BNVA) | payer OTHER, SELFPAY | PROVIDERS: PCP Family Medicine; Visit Provider Nurse Practitioner Family | DX: R07.9 Chest pain, unspecified (principal); I48.91 Unspecified atrial fibrillation | CPT/HCPCS: 93005 ==

== ENCOUNTER → 2023-06-15 12:21 | Outpatient (BNVA) | payer OTHER, SELFPAY | PROVIDERS: PCP Family Medicine; Visit Provider Internal Medicine Cardiovascular Disease | DX: I48.91 Unspecified atrial fibrillation (principal); I10 Essential (primary) hypertension; E11.9 Type 2 diabetes mellitus without complications; E78.5 Hyperlipidemia, unspecified; I25.10 Atherosclerotic heart disease of native coronary artery without angina pectoris; Z87.891 Personal history of nicotine dependence; Z79.84 Long term (current) use of oral hypoglycemic drugs | CPT/HCPCS: 99214 ==

== ENCOUNTER → 2023-08-14 16:58 | Outpatient (BNVA) | payer OTHER, SELFPAY | PROVIDERS: PCP Family Medicine; Visit Provider Internal Medicine | DX: I10 Essential (primary) hypertension (principal); I48.91 Unspecified atrial fibrillation | CPT/HCPCS: 36415; 80048; 83880; 99214 ==

== ENCOUNTER → 2023-10-31 08:34 | Outpatient (BNVA) | payer OTHER, SELFPAY | PROVIDERS: PCP Family Medicine; Visit Provider Orthopaedic Surgery | DX: M54.50 Low back pain, unspecified; Z01.812 Encounter for preprocedural laboratory examination | CPT/HCPCS: 36415; 80053; 81001; 85025; 99214 ==

== ENCOUNTER 2023-11-17 06:48 | Day surgery (SDC) | payer OTHER, SELFPAY ==
[2023-11-17] VITALS (13 sets, daily range): BP systolic 141–180; BP diastolic 58–82; PULSE 55–84; RESP 12–20; TEMP 36.2–37.1; O2SAT 91–98; BMI 35.9
--- NOTE | 2023-11-17 | XR_ITS ---
WS: [id number] INTRAOPERATIVE TECHNIQUE: 2 Spot fluoroscopic images for intraoperative purposes. FLUOROSCOPY TIME: 20.2 seconds CLINICAL INFORMATION: LOUIE PICS COMPARISON: None. FINDINGS: Mild thoracic kyphosis. Dorsal epidural spinal stimulator. Hypertrophic changes with ankylosis thorac ic spine. Aortic calcification. Spinal stimulator projected over T7 vertebral body IMPRESSION: Images obtained for intraoperative purposes.
[2023-11-17 07:45] LABS: Glucose Point of Care 151 mg/dL (70-110)
[2023-11-17] MEDS: sodium chloride 0.9% 1,000 ML 30 ML IV (08:00)
--- NOTE | 2023-11-17 08:35 | P.ANESASSM_ITS ---
Pre-Anesthetic Assessment Height/Weight: Height 1.73 m Weight 107.048 kg Temp Pulse Resp BP Pulse Ox O2 Del Method 98.7 F 84 20 H 180/82 95 Room Air 11/17/23 07:29 11/17/23 07:29 11/17/23 07:29 11/17/23 07:29 11/17/23 07:29 11/17/23 07:29 Preop Diagnosis: Lumbar stenosis with neurogenic claudication Operation Date: 11/17/23 08:50 Proposed Procedures p Spinal Cord Stimulator paddle and generator placement(Not Applicable) - Liang Mario, DO Familial anesthetic complications: none Was Beta Isabel taken within 24 hours: N/A Was Clonidine taken within 24 hours: N/A Last intake: Intake Last Liquid Date 11/16/23 Last Liquid Time 20:00 Last Solid Date 11/16/23 Last Solid Time 19:30 Social No alcohol and No tobacco Exam alert, oriented x 3, clear to auscultation bilaterally and regular rate & rhythm Airway Submandibular: within normal limits Cervical ROM: within normal limits Mallampati: Class II Dentition: false CV/HEM Atrial Fibrillation, Coronary Artery Disease and Myocardial Infarction CAD - stents placed ~ 2009 and 2011 CONCLUSIONS ?LV systolic function is normal with EF of 55-60% ?Diastolic function is normal ?Left atrium is dilated ?Trace mitral regurgitation ?Trace tricuspid regurgitation ?No comparison studies are available ?Alan Timmons MD ?(Electronically Signed) ?Final Date:? ? ? 29 Jan 2022 12:45 Conclusion: 1. ? Normal EKG response to Lexiscan infusion 2.? No Lexiscan induced chest pain or cardiac arrhythmia. 3.? Normal blood pressure and heart rate response. 4.? Sestamibi/sestamibi perfusion scan pending; see separate report. Electronically Signed On 11-05-2022 23:07:01 MANAGER DELIVERY by Alan Timmons M.D. [email or web address] GI Gastroesophageal Reflux Disease Metabolic Diabetes Mellitus, Hyperlipidemia and Morbid Obesity Musc/skel Lower Back Pain and Osteoarthritis/DJD Neuropsych chronic pain/opioid Anesthetic Plan ASA status: 3 Anesthesia: General Medications/Allergies Home Medications Medication Instructions Recorded Confirmed Last Taken Type atorvastatin 80 mg tablet 80 mg PO BEDTIME 10/16/19 11/17/23 11/16/23 History finasteride 5 mg tablet 5 mg PO BEDTIME 10/16/19 11/17/23 11/16/23 History metformin 1,000 mg tablet 1,000 mg PO BID 10/16/19 11/17/23 11/16/23 History pregabalin 150 mg capsule 150 mg PO BID 10/16/19 11/17/23 11/16/23 History tamsulosin 0.4 mg capsule 0.4 mg PO DAILY 10/16/19 11/17/23 11/16/23 History cholecalciferol (vitamin D3) 50 50 mcg PO DAILY 07/20/21 11/17/23 11/16/23 Hi story mcg (2,000 unit) tablet (Vitamin D3) potassium chloride 20 mEq 20 meq PO BEDTIME 11/15/21 11/17/23 11/16/23 History tablet,extended release hydralazine 100 mg tablet 100 mg PO TID #270 tabs 05/30/22 11/17/23 11/16/23 Rx furosemide 40 mg tablet 40 mg PO DAILY 11/17/22 11/17/23 11/16/23 History rivaroxaban 20 mg tablet 20 mg PO DAILY #90 tabs 08/01/23 11/16/23 11/15/23 Rx ascorbic acid (vitamin C) 500 mg 1 g PO DAILY 08/14/23 11/17/23 11/16/23 History tablet magnesium oxide 400 mg (241.3 mg 800 mg PO BEDTIME 08/14/23 11/17/23 11/16/23 History magnesium) tablet diltiazem HCl 120 mg capsule,24 120 mg PO BID #180 caps 11/07/23 11/17/23 11/16/23 Rx hr,extended release famotidine 20 mg tablet 20 mg PO BID 11/08/23 11/17/23 11/16/23 History multivitamin 1 tab PO DAILY 11/08/23 11/17/23 11/16/23 History sacubitril 97 mg-valsartan 103 mg 1 tab PO BID 11/16/23 11/16/23 11/15/23 History tablet (Entresto) Allergies Allergy/AdvReac Type Severity Reaction Status Date / Time isosorbide AdvReac CONFUSION/N Verified 11/08/23 10:12 [facility] Anesthesia Medical History Hypertension Diabetes mellitus Hyperlipidemia Atherosclerotic heart disease Thoracic back pain 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 Encounter for long-term use of opiate analgesic Back pain, lumbosacral History of left heart catheterization Surgical History History of shoulder surgery H/O rhinoplasty Family History Mother Chronic kidney disease (CKD) Diabetes Father Dementia Social History Smoking and tobacco/nicotine status: former use of tobacco/nicotine Second hand smoke exposure: No Alcohol intake: never Substance/Drug Use: never Household members: spouse Marital status: Current occupational status: retired and disabled Data Anesthesia Cardiac Studies: Echocardiogram 01/24/22 Sestamibi Stress Test (Cardiology) 10/26 Cardiac Event Monitor 01/23/23
--- NOTE | 2023-11-17 08:56 | W.PM.OPSUD ---
Surgery/Procedure H&P Update DATE OF PROCEDURE: November 17, 2023 DATE H&P PERFORMED: 11/08/23 H&P UPDATE INFORMATION: I have reviewed H&P completed within last 30 days, I have examined patient prior to procedure and No changes to prior documentation PREOP DIAGNOSIS: Lumbar stenosis with neurogenic claudication PLANNED PROCEDURE: Operation Date: 11/17/23 08:50 Proposed Procedures p Spinal Cord Stimulator paddle and generator placement(Not Applicable) - Liang Mario DO
[2023-11-17] MEDS: ceFAZolin 2,000 MG in sodium chloride 0.9% (plus) 50 ML 100 MG IV (09:13)
[2023-11-17] MEDS: lidocaine-epi 1% 20 mL INJ 10 ML INJECTION (09:55)
--- NOTE | 2023-11-17 10:49 | P.OP_ITS ---
Operative Report Date of procedure: November 17, 2023 Pre-op diagnosis: Lumbar stenosis with neurogenic claudication Post-op diagnosis: same Procedure done: 1. Placement of paddle neurostimulator 2. Placement of battery for neurostimulator Surgeon: Liang Mario DO Estimated blood loss (mL): 10 Procedure: 1. Placement of paddle neurostimulator 2. Placement of battery for neurostimulator Patient brought to the procedure after going anesthesia was placed in the prone position. All his impingement well-padded patient's prepped draped normal fashion. Tenderness was brought to the placement of the paddle neurotransmitter. Skin incision made over the T9-10 level. Subperiosteal diss ection was made down to the transverse processes of T9 and T10. Retractors placed. Rongeur was used by 3 interspinous ligament as well as part of the spinous process of T9. Laminectomy was performed using high-speed bur along with curved curettes and Kerrisons. The ligamentum flavum was then taken down. The dura was exposed. The hockey-stick white paddle was then used to confirm there is a pathway for the neurotransmitter. The paddle neurotransmitter was then slid up to the mid body of T7. This is confirmed on AP lateral fluoroscopy. Once this was completed. Attention was then brought to making the battery pouch. This is made over the left flank. The pocket was then made with using the Bovie and blunt dissection. The tunneler was then passed from the battery pouch to the location of the wires. The wires were sutured to the spinous process of T10. The wires were then passed through the tunneler. Into the battery pouch. They were placed in all 4 ports and trialed and found to be in good position. Battery was then placed in the pouch of the left flank. And wounds were closed in layered fashion with 0 Vicryl 2-0 Vicryl and Monocryl suture. Sterile dressings were applied patient is transferred to the PACU in stable condition
--- NOTE | 2023-11-17 11:09 | PC.NURSE ---
Dolores, [employer], currently performing stimulator checks while patient is in PACU.
[2023-11-17] MEDS: HYDROmorphone 1 mg/mL INJ 1 mL 0.5 MG IVP (11:12)
--- NOTE | 2023-11-17 14:23 | ANE.PACU2 ---
Inpatient post-anesthesia follow up: Airway intact: Yes Vital signs: Temperature 97.1 F Pulse Rate 55 Respiratory Rate 18 Blood Pressure 162/63 Pulse Oximetry 93 Oxygen Delivery Me thod Room Air Oxygen Flow Rate 6 Fraction of Inspir ed Oxygen Hydration adequate: Yes Nausea and vomiting: No Pain level: 2 Mental status: Baseline
== END 2023-11-17 12:12 | disposition home or self-care (01) ==
PROVIDERS: PCP Family Medicine; Visit Provider Orthopaedic Surgery
PROC: (CPT 63685; principal; 2023-11-17 08:50)
DX: M48.062 Spinal stenosis, lumbar region with neurogenic claudication (principal); I25.10 Atherosclerotic heart disease of native coronary artery without angina pectoris; I25.2 Old myocardial infarction; K21.9 Gastro-esophageal reflux disease without esophagitis; E78.5 Hyperlipidemia, unspecified; E66.01 Morbid (severe) obesity due to excess calories; Z68.35 Body mass index [BMI] 35.0-35.9, adult; G89.4 Chronic pain syndrome; Z79.891 Long term (current) use of opiate analgesic; Z79.84 Long term (current) use of oral hypoglycemic drugs; I10 Essential (primary) hypertension; Z87.891 Personal history of nicotine dependence
CPT/HCPCS: 63655; 63685; 36416; 72070; 76000; 82962; C1778; C1820; J0690; J1100; J1170; J2405; J2704; J2710; J3010; J3370; J3490; J7030

== ENCOUNTER → 2023-11-30 10:11 | Outpatient (BNVA) | payer MEDICARE, OTHER, SELFPAY | PROVIDERS: PCP Family Medicine; Visit Provider Orthopaedic Surgery | DX: Z48.89 Encounter for other specified surgical aftercare (principal) | CPT/HCPCS: 99024 ==

== ENCOUNTER → 2024-04-04 11:05 | Outpatient (BNVA) | payer OTHER, SELFPAY | PROVIDERS: PCP Family Medicine; Visit Provider Nurse Practitioner Family | DX: I25.10 Atherosclerotic heart disease of native coronary artery without angina pectoris (principal); I48.0 Paroxysmal atrial fibrillation; I10 Essential (primary) hypertension; Z87.891 Personal history of nicotine dependence; Z79.01 Long term (current) use of anticoagulants | CPT/HCPCS: 36415; 80048; 83880; 99214 ==

== ENCOUNTER → 2024-06-21 12:01 | Outpatient (BNVA) | payer OTHER, SELFPAY | PROVIDERS: PCP Family Medicine; Visit Provider Nurse Practitioner Family | DX: R09.89 Other specified symptoms and signs involving the circulatory and respiratory systems (principal) | CPT/HCPCS: 93005 ==

== ENCOUNTER 2024-07-01 06:12 | Outpatient (CLI) | payer OTHER, SELFPAY ==
--- NOTE | 2024-07-01 06:30 | USCV_ITS ---
Paul Boone Age: 73 Gender: M : 1950 Exam Date: 07/01/2024 06:46 Ordering Phys: Ashlyn Elliott Technologist: KAM [place] [facility] [place]: Bruit Risk Factors: Previous Vascular Surgery: Right Brachial BP: / Left Brachial BP: / Right Left Velocity (cm/s) Spectral Plaque Velocity (cm/s) Spectral Plaque Syst/Diast Broadening Syst/Diast Broadening 94.80/ 17.90 Prox CCA 102.10/ 20.70 104.40/19.70 Mid CCA 143.60/ 20.30 109.60/18.40 Distal CCA 140.00/ 19.80 101.30/15.00 Prox ICA 143.00/ 11.60 132.00/17.70 Mid ICA 99.60 / 16.20 64.10/ 14.10 Distal ICA 88.70 / 19.80 84.50 ECA 85.40 1.20 ICA/CCA 1.00 Antegrade Vertebral Antegrade 53.40/ 10.50 cm/s 67.90/ 10.40 cm/s Tri Subclavian Tri 226.8 161.6 0 0 FINDINGS Comparison: none available. No significant elevation of systolic or diastolic velocities. Diffuse, mild bilateral scattered calcified plaque and intimal thickening throughout the common carotid arteries and extending through the bifurcation. Antegrade vertebral arteries. CONCLUSIONS Bilateral ICA stenosis less than 50%. Diffuse carotid atherosclerosis. Dr. Mehreen Ocampo DO (Electronically Signed) Final Date: 01 July 2024 07:52 S
== END 2024-07-01 06:13 | disposition home or self-care (01) ==
LOC: RAD 06:13
PROVIDERS: PCP Family Medicine; Visit Provider Nurse Practitioner Family
DX: I65.23 Occlusion and stenosis of bilateral carotid arteries (principal); R09.89 Other specified symptoms and signs involving the circulatory and respiratory systems; I25.10 Atherosclerotic heart disease of native coronary artery without angina pectoris; E78.5 Hyperlipidemia, unspecified; I10 Essential (primary) hypertension
CPT/HCPCS: 93880

== ENCOUNTER → 2024-07-17 12:36 | Outpatient (BNVA) | payer OTHER, SELFPAY | PROVIDERS: PCP Family Medicine; Referring Provider Family Medicine; Visit Provider Nurse Practitioner Family | DX: D48.5 Neoplasm of uncertain behavior of skin (principal); L57.0 Actinic keratosis; L82.0 Inflamed seborrheic keratosis; L82.1 Other seborrheic keratosis; L81.4 Other melanin hyperpigmentation; L57.8 Other skin changes due to chronic exposure to nonionizing radiation | CPT/HCPCS: 11102; 17000; 17110; 99203 ==

== ENCOUNTER → 2024-08-15 11:10 | Outpatient (BNVA) | payer OTHER, SELFPAY | PROVIDERS: PCP Family Medicine; Visit Provider Dermatology | DX: L81.4 Other melanin hyperpigmentation (principal); D22.5 Melanocytic nevi of trunk; C44.519 Basal cell carcinoma of skin of other part of trunk | CPT/HCPCS: 17262; 99213 ==

== ENCOUNTER → 2025-01-01 10:18 | Outpatient (BNVA) | payer OTHER, SELFPAY | PROVIDERS: PCP Family Medicine; Referring Provider Family Medicine; Visit Provider Surgery | DX: D64.9 Anemia, unspecified (principal) | CPT/HCPCS: 99204 ==

== ENCOUNTER → 2025-01-14 09:43 | Outpatient (BNVA) | payer OTHER, SELFPAY | PROVIDERS: PCP Family Medicine; Visit Provider Nurse Practitioner Family | DX: L81.4 Other melanin hyperpigmentation (principal); D22.5 Melanocytic nevi of trunk; L82.1 Other seborrheic keratosis; L57.8 Other skin changes due to chronic exposure to nonionizing radiation; X32.XXXA Exposure to sunlight, initial encounter; Z08 Encounter for follow-up examination after completed treatment for malignant neoplasm; Z85.828 Personal history of other malignant neoplasm of skin | CPT/HCPCS: 99213 ==

== ENCOUNTER 2025-01-23 06:21 | Day surgery (SDC) | payer OTHER, SELFPAY ==
[2025-01-23 06:43] VITALS: BP 165/68; PULSE 60; RESP 18; TEMP 36.7; O2SAT 97
[2025-01-23 06:46] VITALS: BMI 39.8
--- NOTE | 2025-01-23 06:55 | ANES.PREANE2 ---
Pre-Anesthetic Assessment Height/Weight: Height 1.73 m Weight 118.841 kg Temp Pulse Resp BP Pulse Ox O2 Del Method 98.0 F 60 18 165/68 97 Room Air 01/23/25 06:43 01/23/25 06:43 01/23/25 06:43 01/23/25 06:43 01/23/25 06:43 01/23/25 06:43 Operation Date: 01/23/25 07:40 Proposed Procedures p EGD 99077 D64.9(Not Applicable) - Dario Burgess MD Familial anesthetic complications: Thinks he's in [place] when he wakes up Was Beta Isabel taken within 24 hours: N/A Was Clonidine taken within 24 hours: N/A Last intake: Intake Last Liquid Date 01/22/25 Last Liquid Time 19:00 Last Solid Date 01/22/25 Last Solid Time 19:00 Social No alcohol and No tobacco Exam alert, oriented x 3, clear to auscultation bilaterally and regular rate & rhythm Airway Submandibular: within normal limits Cervical ROM: Other (Full ROM with some pain) Mallampati: Class IV Comments: Comments: Edentulous History/ROS No significant history except as noted and No significant complaints Pulmonary Exertional Dyspnea and Sleep Apnea (Wears CPAP) CV/HEM Atrial Fibrillation, Anemia, Arrythmia, Coronary Artery Disease, Congestive Heart Failure, Hypertension and Myocardial Infarction (Stents x4, last stent placed 2010. Cardiology appointment next week. No changes in care) Procedure: At the baseline, the blood pressure was 159/60 mmHg with a heart rate of 65 bpm. The electrocardiogram showed normal sinus rhythm, normal axis with normal ST and T's. The Lexiscan was infused over a period of 20 seconds. A total of 0.4 mg of Lexiscan was infused. The stress phase was continued for a total of 5 minutes. Heart rate was at the end of stress phase was 85 bpm and a blood pressure of 150/44 mmHg. The EKG at the peak infusion revealed normal sinus rhythm with no significant ST-T wave changes. Sestamibi was injected 20 seconds after the Lexiscan infusion. Blood pressure at the end of recovery phase was 162/44 mmHg with a heart rate of 77 bpm. Conclusion: 1. Normal EKG response to Lexiscan infusion 2. No Lexiscan induced chest pain or cardiac arrhythmia. 3. Normal blood pressure and heart rate response. 4. Sestamibi/sestamibi perfusion scan pending; see separate report. CONCLUSIONS LV systolic function is normal with EF of 55-60% Diastolic function is normal Left atrium is dilated Trace mitral regurgitation Trace tricuspid regurgitation No comparison studies are available None reported Hepatic None reported GI Gastroesophageal Reflux Disease (No symptoms this morning, controlled with meds) and Peptic Ulcer Disease Metabolic Diabetes Mellitus, Hyperlipidemia and Morbid Obesity Musc/skel Lower Back Pain (Pain stimulator, not turned on) and Osteoarthritis/DJD Neuropsych Anxiety, Depression, Neuropathy and Transient Ischemic Attack (Before 2014, no deficits) Anesthetic Plan ASA status: 3 Anesthesia: Anesthesia Evaluation, General and MAC Risk of > 500 ml blood loss (7ml/kg in children): No Medications/Allergies Home Medications ?Medication ?Instructions ?Recorded ?Confirmed ?Last Taken ?Type atorvastatin 80 mg tablet (Lipitor) 80 mg PO BEDTIME 10/16/19 01/20/25 01/22/25 History finasteride 5 mg tablet (Proscar) 5 mg PO BEDTIME 10/16/19 01/20/25 01/22/25 History metformin 1,000 mg tablet 1,000 mg PO BID 10/16/19 01/20/25 01/22/25 History pregabalin 150 mg capsule 150 mg PO BID 10/16/19 01/20/25 01/22/25 History tamsulosin 0.4 mg capsule 0.4 mg PO DAILY 10/16/19 01/20/25 01/22/25 History potassium chloride 20 mEq 20 meq PO BEDTIME 11/15/21 01/20/25 01/22/25 History tablet,extended release Held on 07/01/24. Instructions: Home Medication placed on hold at Doctor's office hydralazine 100 mg tablet 100 mg PO TID #270 tabs 05/30/22 01/20/25 01/22/25 Rx ascorbic acid (vitamin C) 500 mg 1 g PO DAILY 08/14/23 01/20/25 01/22/25 History tablet famotidine 20 mg tablet 20 mg PO BID 11/08/23 01/20/25 01/22/25 History multivitamin 1 tab PO DAILY 11/08/23 01/20/25 01/22/25 History sacubitril 97 mg-valsartan 103 mg 1 tab PO BID 11/16/23 01/20/25 01/22/25 History tablet (Entresto) furosemide 40 mg tablet See Rx Instructions PO DAILY 04/04/24 01/20/25 01/22/25 History diltiazem HCl 120 mg capsule,24 120 mg PO BID #180 caps 09/26/24 01/20/25 01/22/25 Rx hr,extended release cyanocobalamin (vitamin B-12) 100 100 mcg PO DAILY 01/01/25 01/20/25 01/22/25 History mcg tablet ferrous gluconate 324 mg (37.5 mg 324 mg PO TID 01/01/25 01/22/25 01/22/25 History iron) tablet hydrocodone 7.5 mg-acetaminophen 1 tab PO QID PRN Pain 01/01/25 01/22/25 01/22/25 History 325 mg tablet pantoprazole 40 mg tablet,delayed 40 mg PO BID 01/01/25 01/22/25 01/22/25 History release sitagliptin 100 mg tablet 100 mg PO DAILY 01/01/25 01/22/25 01/22/25 History spironolactone 25 mg tablet 25 mg PO DAILY 01/20/25 01/20/25 01/22/25 History (Aldactone) folic acid 400 mcg tablet 0.4 mg PO DAILY 01/22/25 01/22/25 01/22/25 History Allergies Allergy/AdvReac Type Severity Reaction Status Date / Time isosorbide AdvReac CONFUSION/N Verified 01/20/25 08:57 [facility] Anesthesia Medical History Hypertension Diabetes mellitus Hyperlipidemia Atherosclerotic heart disease Thoracic back pain 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 Encounter for long-term use of opiate analgesic Back pain, lumbosacral History of left heart catheterization Surgical History History of shoulder surgery H/O rhinoplasty Family History Mother Chronic kidney disease (CKD) Diabetes Father Dementia Social History Smoking and tobacco/nicotine status: former use of tobacco/nicotine Second hand smoke exposure: No Alcohol intake: never Substance/Drug Use: never Household members: spouse Marital status: Current occupational status: retired and disabled Data Anesthesia Cardiac Studies: Echocardiogram 01/24/22 Sestamibi Stress Test (Cardiology) 10/26/22 Cardiac Event Monitor 01/23/23
[2025-01-23] MEDS: sodium chloride 0.9% 500 ML 30 ML IV (06:56)
[2025-01-23 07:32] LABS: Glucose Point of Care 149 mg/dL (70-110)
[2025-01-23 07:37] LABS: Anion Gap 18.5 (5-19); Blood Urea Nitrogen 37 mg/dL (8-23); Calcium 9.7 mg/dL (8.5-10.5); Carbon Dioxide 23 mmol/L (22-29); Chloride 105 mmol/L (98-107); Creatinine Clr Calc Pharmacy 47.7618; Glucose 135 mg/dL (65-115); Osmolality Calculated 305 mOsm/kg (285-295); Potassium 4.5 mmol/L (3.5-5.1); Sodium 142 mmol/L (136-145)
--- NOTE | 2025-01-23 08:06 | W.PM.OPSUD ---
Surgery/Procedure H&P Update DATE OF PROCEDURE: January 23, 2025 DATE H&P PERFORMED: 01/01/25 H&P UPDATE INFORMATION: I have reviewed H&P completed within last 30 days, I have examined patient prior to procedure, No changes to prior documentation, Changes to prior documentation as noted here and Risks and benefits of the procedure reviewed PLANNED PROCEDURE: Operation Date: 01/23/25 07:40 Proposed Procedures p EGD 25301 D64.9(Not Applicable) - Dario Burgess MD
[2025-01-23 08:20] VITALS: BP 131/61; PULSE 61; RESP 12; TEMP 37.7; O2SAT 96
[2025-01-23 08:30] VITALS: BP 145/63; PULSE 63; RESP 16; O2SAT 95
[2025-01-23 08:40] VITALS: BP 139/75; PULSE 63; RESP 18; O2SAT 96
--- NOTE | 2025-01-23 09:00 | ANE.PACU2 ---
Inpatient post-anesthesia follow up: Airway intact: Yes Vital signs: Temperature 99.8 F Pulse Rate 63 Respiratory Rate 18 Blood Pressure 139/75 Pulse Oximetry 96 Oxygen Delivery Me thod Room Air Oxygen Flow Rate Fraction of Inspir ed Oxygen Hydration adequate: Yes Nausea and vomiting: No Pain level: 1 Mental status: Baseline
== END 2025-01-23 09:00 | disposition home or self-care (01) ==
PROVIDERS: Anesthesiology; PCP Family Medicine; Visit Provider Surgery
PROC: 0DJ08ZZ Inspection of Upper Intestinal Tract, Via Natural or Artificial Opening Endoscopic (ICD-10-PCS; principal; 2025-01-23 07:40)
DX: K29.00 Acute gastritis without bleeding (principal); D50.9 Iron deficiency anemia, unspecified; I48.91 Unspecified atrial fibrillation; I25.10 Atherosclerotic heart disease of native coronary artery without angina pectoris; I11.0 Hypertensive heart disease with heart failure; Z95.5 Presence of coronary angioplasty implant and graft; I50.9 Heart failure, unspecified; I25.2 Old myocardial infarction; K21.9 Gastro-esophageal reflux disease without esophagitis; E11.9 Type 2 diabetes mellitus without complications; E78.5 Hyperlipidemia, unspecified; E66.01 Morbid (severe) obesity due to excess calories; Z68.39 Body mass index [BMI] 39.0-39.9, adult; Z79.899 Other long term (current) drug therapy; Z79.84 Long term (current) use of oral hypoglycemic drugs; Z88.8 Allergy status to other drugs, medicaments and biological substances; Z87.891 Personal history of nicotine dependence
CPT/HCPCS: 36416; 43239; 80048; 82962; 88305; J2704; J7040

== ENCOUNTER → 2025-01-30 16:13 | Outpatient (BNVA) | payer OTHER, SELFPAY | PROVIDERS: PCP Family Medicine; Visit Provider Internal Medicine Cardiovascular Disease | DX: I25.10 Atherosclerotic heart disease of native coronary artery without angina pectoris (principal); I10 Essential (primary) hypertension; E78.5 Hyperlipidemia, unspecified; I48.0 Paroxysmal atrial fibrillation; D64.9 Anemia, unspecified; Z95.5 Presence of coronary angioplasty implant and graft; Z87.891 Personal history of nicotine dependence | CPT/HCPCS: 99214 ==

== ENCOUNTER → 2025-02-04 10:42 | Outpatient (BNVA) | payer OTHER, SELFPAY | PROVIDERS: PCP Family Medicine; Visit Provider Surgery | DX: Z09 Encounter for follow-up examination after completed treatment for conditions other than malignant neoplasm (principal) | CPT/HCPCS: 99213 ==

== ENCOUNTER 2025-07-07 14:34 | Outpatient (CLI) | payer OTHER, SELFPAY ==
--- NOTE | 2025-07-07 14:40 | US_ITS ---
WS: [id number] RENAL ULTRASOUND HISTORY: ACUTE NONTRAUMATIC KIDNEY INJURY COMPARISON: None available. TECHNIQUE: 2-D and color Doppler imaging of the kidney submitted. Right kidney: 11.1 cm x 5.9 cm x 6.9 cm. Cortex: 1.6 cm Poorly visualized kidney. Mild cortical thinning in the upper pole. No obstruction. Left kidney: 10.7 cm x 5.8 cm x 8.0 cm. Cortex: 1.6 cm Poorly visualized kidney due to body habitus. No mass or obstruction. Aorta: Not visualized. Urinary Bladder: Nondistended. US/US renal BI* [id number] IMPRESSION: 1. Limited visualization of each kidney due to body habitus. 2. Mild cortical thinning superior pole RIGHT kidney. 3. Normal size kidneys. 4. No hydronephrosis.
== END 2025-07-07 14:35 | disposition home or self-care (01) ==
LOC: RAD 14:35
PROVIDERS: PCP Family Medicine; Visit Provider Nurse Practitioner
DX: N17.9 Acute kidney failure, unspecified (principal)
CPT/HCPCS: 76770